=== PATIENT | female | born 1990 | race African-American/Black ===

== ENCOUNTER 2020-08-31 04:17 | Emergency (ER) | payer SELFPAY ==
[~2020-08-31] VITALS: Ht 167.6 cm; Wt 107.0 kg
[2020-08-31 06:08] VITALS: BP 110/71
== END 2020-08-31 06:08 | disposition home or self-care (01) | DRG 153 ==
LOC: ED 04:17
DX: J06.9 Acute upper respiratory infection, unspecified (principal); R43.8 Other disturbances of smell and taste; Z20.822 Contact with and (suspected) exposure to COVID-19

== ENCOUNTER 2024-04-09 15:19 | Emergency (ER) | payer BC ==
[~2024-04-09] VITALS: Ht 167.6 cm; Wt 106.1 kg
[2024-04-09 15:28] VITALS: BP 132/95
[2024-04-09 15:31] VITALS: BP 151/97
[2024-04-09] MEDS ORDERED: traMADol HCL 50 MG/TAB PO ONE (15:35)
[2024-04-09] MEDS ORDERED: BACTRIM DS1 TAB PO (15:42)
[2024-04-09] MEDS ORDERED: VISTARIL25 MG PO (15:42)
[2024-04-09 15:43] VITALS: BP 151/97
[2024-04-09 15:48] VITALS: BP 116/83
== END 2024-04-09 15:50 | disposition home or self-care (01) | DRG 607 ==
LOC: ED 15:19
DX: L98.9 Disorder of the skin and subcutaneous tissue, unspecified (principal); F41.9 Anxiety disorder, unspecified